=== PATIENT | female | born 1995 | race Caucasian/White ===

== ENCOUNTER 2020-08-16 10:02 | Inpatient (IN) | payer OTHER ==
[2020-08-16] MEDS ORDERED: AMPICILLIN - 2 GM in SODIUM CHLORIDE 100 ML IVPB ONE (11:11)
[2020-08-16] MEDS ORDERED: OXYTOCIN 30 UNITS in 0.9% NS 30 UNIT/500 ML INFUS.BAG IVPB SCH (11:15)
[2020-08-16] MEDS ORDERED: ELECTROLYTE-148 SOLN 1,000 ML IV SCH (11:15)
[2020-08-16] MEDS ORDERED: AMPICILLIN SODIUM 2 GM VIAL ONE (11:17)
[2020-08-16 11:36] VITALS: BMI 32.9
[2020-08-16 11:39] LABS: BASO % 0.3 % (0-2.0); EOS % 0.2 % (0-4.5); HEMATOCRIT 32.7 % (32.4-45.2); HEMOGLOBIN 11.3 GM/dL (10.7-15.3); LYMPH % 13.7 % (8-40); MCH 32.3 pg (25.7-33.7); MCHC 34.6 g/dl (32.0-36.0); MEAN CELL VOLUME 93.2 fl (80-96); MEAN PLT VOLUME 9.9 fl (7.5-11.1); MONO % 5.7 % (3.8-10.2); NEUT % 80.1 % (42.8-82.8); PLATELET COUNT 201 K/MM3 (134-434); RBC 3.51 M/mm3 (3.60-5.2); RDW 13.1 % (11.6-15.6); WHITE BLOOD COUNT 8.4 K/mm3 (4.0-10.0)
[2020-08-16 11:47] LABS: INR 0.91 (0.83-1.09); PROTHROMBIN TIME (PATIENT) 11.1 SEC (9.7-13.0)
[2020-08-16 11:50] LABS: ACTIVATED PTT 28.6 SECONDS (25.2-36.5)
[2020-08-16] MEDS ORDERED: OXYTOCIN 30 UNITS in 0.9% NS 30 UNIT/500 ML INFUS.BAG IVPB ONE (12:08)
[2020-08-16 12:14] LABS: CALCIUM 8.9 mg/dL (8.5-10.1)
[2020-08-16 12:17] LABS: CREATININE 0.5 mg/dL (0.55-1.3)
[2020-08-16] MEDS ORDERED: BUTORPHANOL TARTRATE 1 MG/ML VIAL IVPB ONE (12:24)
[2020-08-16] MEDS ORDERED: PROMETHAZINE HCL 25 MG/1 ML VIAL IVPB ONE (12:24)
[2020-08-16] MEDS ORDERED: BUTORPHANOL TARTRATE 2 MG/ML VIAL ONE (12:25)
[2020-08-16 14:26] LABS: POC NITRAZINE POS
[2020-08-16] MEDS ORDERED: AMPICILLIN SODIUM 1 GM VIAL ONE ×2 (14:39→17:51)
[2020-08-16] MEDS: AMPICILLIN - 1 GM in SODIUM CHLORIDE 100 ML IVPB SCH ×3 (15:00→23:34)
[2020-08-16] MEDS ORDERED: FENTANYL/BUPIVACAINE/NS/PF - PCEA - 50 ML DISP.SYRIN EP ONE (15:07)
[2020-08-16] MEDS ORDERED: PCA PUMP NR ONE (15:07)
[2020-08-16] MEDS ORDERED: NALOXONE HCL 0.4 MG/ML VIAL IVPUSH PRN (15:10)
[2020-08-16] MEDS ORDERED: BUPIVACAINE HCL/PF 0.25% (2.5MG/ML) 10 ML VIAL ONE (15:12)
[2020-08-16] MEDS: FENTANYL/BUPIVACAINE/NS/PF - PCEA - 50 ML DISP.SYRIN EP SCH (15:25)
[2020-08-16] MEDS ORDERED: OXYTOCIN 20 UNITS in 0.9% NS 20 UNIT/1,000 ML INFUS.BAG IV ONE (15:44)
[2020-08-16] MEDS ORDERED: BISACODYL 10 MG SUPP.RECT RC PRN (19:01)
[2020-08-16] MEDS ORDERED: BENZOCAINE 20% 57 GM BOTTLE TP PRN (19:01)
[2020-08-16] MEDS ORDERED: BENZOCAINE 28 GM HEMORRHOIDAL OINTMENT TP PRN (19:01)
[2020-08-16] MEDS ORDERED: WITCH HAZEL 50% (TUCKS) 40 PAD/JAR PAD TP PRN (19:01)
[2020-08-16] MEDS ORDERED: IBUPROFEN 600 MG TABLET (FP) PO PRN (19:01)
[2020-08-16] MEDS ORDERED: OXYTOCIN 20 UNITS in 0.9% NS 20 UNIT/1,000 ML INFUS.BAG IV SCH (19:15)
[2020-08-16 19:55] LABS: CORD BASE EXCESS -5.3 mmol/L (0-2); CORD HCO3 21.8 mmHg (20-29); CORD PCO2 48.1 mmHg (30-78); CORD pH 7.274 (7.14-7.44)
[2020-08-16 19:56] LABS: CORD HCO3 18.3 mmHg (20-29); CORD PCO2 48.3 mmHg (30-78); CORD pH 7.196 (7.14-7.44)
[2020-08-16] MEDS: ACETAMINOPHEN 325 MG TABLET (FP) PO PRN (23:08)
[2020-08-17] MEDS: AMPICILLIN - 1 GM in SODIUM CHLORIDE 100 ML IVPB SCH ×3 (03:11→10:44)
[2020-08-17 08:56] LABS: BASO % 0.2 % (0-2.0); EOS % 0.2 % (0-4.5); HEMATOCRIT 31.6 % (32.4-45.2); HEMOGLOBIN 10.9 GM/dL (10.7-15.3); LYMPH % 14.4 % (8-40); MCH 32.3 pg (25.7-33.7); MCHC 34.5 g/dl (32.0-36.0); MEAN CELL VOLUME 93.6 fl (80-96); MEAN PLT VOLUME 10.3 fl (7.5-11.1); MONO % 5.6 % (3.8-10.2); NEUT % 79.6 % (42.8-82.8); PLATELET COUNT 216 K/MM3 (134-434); RBC 3.37 M/mm3 (3.60-5.2); RDW 13.3 % (11.6-15.6); WHITE BLOOD COUNT 11.9 K/mm3 (4.0-10.0)
[2020-08-17] MEDS: FENTANYL/BUPIVACAINE/NS/PF - PCEA - 50 ML DISP.SYRIN EP SCH (16:25)
[2020-08-17 20:24] VITALS: TEMP 97.8
[2020-08-17] MEDS ORDERED: SENNOSIDES/DOCUSATE COMBO (SENNA PLUS) TABLET (UD) PO PRN (22:00)
[2020-08-18 09:49] VITALS: BP 130/81; PULSE 81
[2020-08-18] MEDS: ACETAMINOPHEN 325 MG TABLET (FP) PO PRN (10:33)
== END 2020-08-18 15:00 | disposition home or self-care (01) | DRG 560 ==
LOC: JLDR 10:02 → J3W 21:10
PROVIDERS: ADMIT Obstetrics & Gynecology; ATTEND Obstetrics & Gynecology
PROC: 0HQ9XZZ Repair Perineum Skin, External Approach (ICD-10-PCS; principal; 2020-08-16)
PROC: 10E0XZZ Delivery of Products of Conception, External Approach (ICD-10-PCS; 2020-08-16)
DX: O42.013 Preterm premature rupture of membranes, onset of labor within 24 hours of rupture, third trimester (principal); O70.0 First degree perineal laceration during delivery; O99.824 Streptococcus B carrier state complicating childbirth; Z3A.36 36 weeks gestation of pregnancy; Z37.0 Single live birth
CPT/HCPCS: 36415; 36600; 59409; 80048; 82803; 83986-QW; 85025; 85610; 85730; 86780; 86850; 86900; 86901; C9803; U0003

== ENCOUNTER 2022-11-19 21:52 | Inpatient (IN) | payer OTHER ==
[2022-11-19] MEDS ORDERED: AZITHROMYCIN IVPB 500 MG/250 ML BAG IVPB ONE ×2 (23:00→23:15)
[2022-11-19] MEDS ORDERED: AMPICILLIN - 2 GM in SODIUM CHLORIDE 100 ML IVPB ONE ×2 (23:00→23:10)
[2022-11-19] MEDS ORDERED: AMPICILLIN SODIUM 2 GM VIAL ONE (23:00)
[2022-11-19] MEDS ORDERED: MAGNESIUM 4GM/H20 - 4 GM/100 ML IVPB IVPB ONE (23:01)
[2022-11-19] MEDS ORDERED: BETAMET ACET/BETAMET NA PH 30 MG/5 ML VIAL IM ONE (23:11)
[2022-11-19] MEDS ORDERED: MAGNESIUM 4GM/H20 - 4 GM/100 ML IVPB IVPB SCH (23:15)
[2022-11-19] MEDS ORDERED: ELECTROLYTE-148 SOLN 1,000 ML IV SCH (23:15)
[2022-11-19] MEDS ORDERED: BETAMET ACET/BETAMET NA PH 30 MG/5 ML VIAL ONE (23:19)
[2022-11-19 23:35] VITALS: RESP 20
[2022-11-19] MEDS ORDERED: LACTATED RINGERS SOLUTION 1,000 ML IV SCH (23:45)
[2022-11-20 00:16] VITALS: BP 108/60; BMI 28.8
[2022-11-20] MEDS ORDERED: AZITHROMYCIN IVPB 500 MG in DEXTROSE 5%-WATER - 250 ML IVPB ONE (00:19)
[2022-11-20 00:24] LABS: BASO % 0.2 % (0-2.0); EOS % 0.4 % (0-4.5); HEMATOCRIT 30.1 % (32.4-45.2); HEMOGLOBIN 10.7 GM/dL (10.7-15.3); MCH 32.5 pg (25.7-33.7); MCHC 35.5 g/dl (32.0-36.0); MEAN CELL VOLUME 91.6 fl (80-96); MEAN PLT VOLUME 8.7 fl (7.5-11.1); MONO % 5.1 % (3.8-10.2); NEUT % 75.3 % (42.8-82.8); PLATELET COUNT 287 10^3/uL (134-434); RBC 3.29 M/mm3 (3.60-5.2); RDW 13.6 % (11.6-15.6)
[2022-11-20 00:27] LABS: INR 0.98 (0.83-1.09); PROTHROMBIN TIME (PATIENT) 11.4 SEC (9.7-13.0)
[2022-11-20 00:37] LABS: CALCIUM 8.7 mg/dL (8.5-10.1); POTASSIUM 3.9 mmol/L (3.5-5.1)
[2022-11-20 00:39] LABS: BLOOD UREA NITROGEN 10.6 mg/dL (7-18)
[2022-11-20 00:41] LABS: CREATININE 0.5 mg/dL (0.55-1.3)
[2022-11-20 01:32] VITALS: PULSE 74; TEMP 98.2
== END 2022-11-20 00:30 | disposition short-term general hospital (02) | DRG 566 ==
LOC: JDEL 21:52 → JLDR 22:50
PROVIDERS: ADMIT Obstetrics & Gynecology; ATTEND Obstetrics & Gynecology
DX: O42.913 Preterm premature rupture of membranes, unspecified as to length of time between rupture and onset of labor, third trimester (principal); Z3A.28 28 weeks gestation of pregnancy
CPT/HCPCS: 36415; 80048; 85025; 85610; 85730; 86780; 86850; 86900; 86901; 96372; C9803-CS; U0003; U0005